=== PATIENT | male | born 2000 | race Caucasian/White ===

== ENCOUNTER 2019-03-11 16:42 | Emergency (ER) | payer OTHER, SELFPAY ==
[2019-03-11 17:28] VITALS: BP 143/87; PULSE 104; RESP 18; TEMP 36.9; O2SAT 97
--- NOTE | 2019-03-11 17:43 | W.ED.GENAD ---
Discharge Plan Disposition Patient Disposition: HOME Condition: Stable Discharge Details Chief Complaint: EyeProblem Clinical Impression: Corneal abrasion Primary Care Provider: None,None ED Provider: Jaylin Wynn Home Meds and New Rx's Prescriptions: New erythromycin 5 mg/gram (0.5 %) ointment 0.5 inch OP QID 7 Days Qty: 3.5 RF: 0 Discharge Instructions Instructions: Corneal Abrasion (ED) Additional Instructions: Do not scratch your eye. Use medications as directed. Follow-up with [facility] ophthalmology department within 3 to 5 days. Return to the ED for any purulent drainage green or yellow drainage from your eye any severe worsening pain or any concerns. [facility] Address: [address] [place] [id number] Referrals: Ashley Montez [Emergency Nurse] - Discharge Data Discharge Date/Time-TO BE ENTERED AT DEPARTURE: 03/11/19 18:40 Medical Decision Making 18-year-old male presents with right eye pain and tearing after possible scratch by a sugar glider yesterday morning. Patient reports the animal jumped his face scratching him in his right eye with its clot. He reports being up-to-date on his tetanus shot. Upon initial visualization there is no globe rupture, no bleeding noted pupils are PERRLA. Conjunctive is injected EOMs are intact. No other injuries to face noted. There is clear discharge, no purulent discharge. No periorbital swelling, eyelids are normal. Cerrato lamp exam completed with fluorescein. And tetracaine, there is a small punctate centrally located uptake in dye. No other uptake in dye noted. No foreign body visualized at this time. Presumed corneal abrasion. Erythromycin ointment applied in department. Prescription also written for erythromycin ointment 4 times a day x10 days. Patient referred to [facility] for follow-up. Home care discussed, verbalized understanding. At this time my impression is corneal abrasion. HPI General Mode of arrival: ambulatory. Date/Time Provider Initiated Documentation: 03/11/19 17:42. Limitations to Documentation: no limitations. Information obtained by: patient. HPI Narrative: 18-year-old male presents with right eye complaint. Reports that yesterday around 1500 had a small flying squirrel/sugar rat jumped in and get his claw to his right eye. He now reports pain, tearing and blurry vision. Pupil is PERRLA, conjunctive is injected. No obvious trauma noted to his globe upon initial exam. Patient reports that he is up-to-date on his tetanus shot. Related Data Home Medications Medication Instructions Recorded Confirmed erythromycin 0.5 inch OP QID 7 Days #3.5 gm 03/11/19 Previous Rx's Medication Instructions Recorded erythromycin 0.5 inch OP QID 7 Days #3.5 gm 03/11/19 General Stated Complaint: EyeProblem AURA: 4 Review of Systems Narrative: Constitutional: Negative for weight loss, alert and oriented, well groomed, normal body habitus, appears comfortable. HEENT: Denies headaches, , nasal discharge, sore throat, trouble swallowing. Complains of right eye pain and tearing. Chest: Denies chest pain, palpitations, irregular rhythm, hypertension. Respiratory: Denies Shortness of breath, cough, hemoptysis. GI: Denies abdominal pain, nausea, vomiting, diarrhea, constipation. : Denies dysuria, hematuria, flank pain,rectal bleeding. Neuro: Denies dizziness, , weakness, syncope, headache or facial numbness. Hematologic: Denies easy bruising, intolerance to heat or cold, hair loss. [facility] Social History Smoking/Tobacco Use Status: Never Alcohol Intake: never Drug use: Occasionally Substance use type: marijuana Do you feel safe at home: Yes Do you feel safe in your relationship?: Yes Exam Const General: cooperative, healthy appearing and comfortable Orientation: alert, awake and oriented x3 Eyes Periorbital: periorbital findings abnormal Eyelids: eyelids normal Conjunctivae: conjunctival abnormality right conjunctival injection diffuse; without subconjunctival hemmorhages Cornea: corneas abnormal on the right fluorescein used and abrasion central, punctate and at the following clock position (7 o clock centrally); without dendrites present and with no foreign body noted and fluorescein used Pupils: PERRL EOM: EOM intact bilaterally Direct ophthalmoscopy: normal light reflex Resp Effort & Inspection: normal respiratory effort and able to speak in complete sentences Auscultation: clear to auscultation bilaterally Cardio Rate: regular rate Rhythm: regular rhythm Heart Sounds: S1 normal and S2 normal Course Vital Signs Vital signs: Vital Signs Temperature 36.9 C 03/11/19 17:28 Pulse 104 H 03/11/19 17:28 Respiratory Rate 18 03/11/19 17:28 Blood Pressure 143/87 H 03/11/19 17:28 Pulse Oximetry 97 03/11/19 17:28 Temperature 36.9 C 03/11/19 17:28 Temperature Source Skin 03/11/19 17:28 Pulse 104 H 03/11/19 17:28 Respiratory Rate 18 03/11/19 17:28 Blood Pressure 143/87 H 03/11/19 17:28 Pulse Oximetry 97 03/11/19 17:28 Oxygen Delivery Method Room Air 03/11/19 17:28 Oxygen Flow Rate 0 03/11/19 17:28 Pain Level 2 03/11/19 17:28
[2019-03-11] MEDS: Tetracaine 0.5% 4 ML BTL OP (17:56)
[2019-03-11] MEDS: Fluorescein STRIPS 100/BOX 1 MG OP (17:56)
[2019-03-11] MEDS: Erythromycin Ophth Oint 3.5 GM TUBE OP (17:56)
== END 2019-03-11 18:40 | disposition home or self-care (01) ==
PROVIDERS: Emergency Provider Registered Nurse Emergency
DX: S05.01XA Injury of conjunctiva and corneal abrasion without foreign body, right eye, initial encounter (principal); W55.82XA Struck by other mammals, initial encounter
CPT/HCPCS: 99283